=== PATIENT | male | born 1965 | race Caucasian/White ===

== ENCOUNTER 2019-01-01 06:56 | Day surgery (SDC) | payer OTHER ==
[~2019-01-01 06:56] MED LIST: ACETAMINOPHEN 1,000 MG/100 ML BTL IVPB ONE
[2019-01-01] MEDS ORDERED: FENTANYL PF 100MCG/2ML VIAL IV ONE (06:57)
[2019-01-01] MEDS ORDERED: LIDOCAINE 2% MDV (20MG/ML) 20ML VIAL IV ONE (06:57)
[2019-01-01] MEDS ORDERED: DEXAMETHASONE 4 MG/ML 1ML VIAL IVP ONE (06:57)
[2019-01-01] MEDS ORDERED: MIDAZOLAM HCL 2MG/2ML VIAL IV ONE (06:57)
[2019-01-01] MEDS ORDERED: ONDANSETRON HCL IV 4 MG/2 ML VIAL IVP ONE (06:57)
[2019-01-01] MEDS ORDERED: KETOROLAC 30 MG/ML VIAL IVP ONE (06:57)
[2019-01-01] MEDS ORDERED: DESFLURANE 240 ML BTL INH ONE (06:57)
[2019-01-01] MEDS ORDERED: PROPOFOL 10 MG/ML VIAL IV ONE (06:57)
[2019-01-01] MEDS ORDERED: RINGERS SOLUTION,LACTATED 1,000 ML IV ONE (07:40)
[2019-01-01] MEDS ORDERED: OXYCODONE HCL/APAP 5MG/325MG TABLET PO ONE (10:48)
--- NOTE | 2019-01-01 12:54 | Operative Note ---
DATE OF SURGERY: 01/01/2019 SURGEON: Joe Ye D.O. REFERRING PHYSICIAN: Leif Schuster D.O. PREOPERATIVE DIAGNOSIS: CARPAL TUNNEL SYNDROME IN THE LEFT WRIST. POSTOPERATIVE DIAGNOSIS: CARPAL TUNNEL SYNDROME IN THE LEFT WRIST. OPERATION: DECOMPRESSION OF THE LEFT MEDIAN NERVE OF THE WRIST USING 3.5 LOOP MAGNIFICATION. DESCRIPTION: This is 53-year-old male was taken to the Operating Room and placed in the supine position on the operating room table. General anesthesia was induced, the left upper extremity was elevated, it was prepped with Hibiclens and draped in the usual sterile fashion. It was exsanguinated and the tourniquet was inflated to 250 mmHg. A palmar incision was utilized following the hypothenar crease from the level of the base of the web space of the thumb to the flexor crease of the wrist. Dissection was carried down through the skin and subcutaneous tissues. Hemostasis was obtained with electrocautery. The palmar fascia was divided in line with the skin incision. The flexor retinaculum was identified, it was punctured, split to its proximal margin and then when the contents of the carpal tunnel are under direct vision the transverse carpal ligament was transected along its ulnar border and the radial flap was raised to expose the entire median nerve under the transverse carpal ligament. The recurrent motor branch of the median nerve was in an abnormal position being on the radial aspect of the nerve, but it was found to be intact. The median nerve itself appeared to be grossly normal other than the unusual position of the recurrent motor branch. The wound was irrigated with lactated Ringer's solution and the tourniquet released. Hemostasis was obtained with the electrocautery and the wound closed with interrupted 6-0 nylon suture. Sterile dressings were applied and the patient was subsequently taken to the Recovery Room in satisfactory condition. GROSS PATHOLOGY: This patient demonstrated normal appearance of the median nerve. There was an unusual position of the recurrent motor branch on the radial aspect of the median nerve. JOB NUMBER: [id number] MTDD
== END 2019-01-01 11:00 | disposition home or self-care (01) ==
LOC: SUR 06:56
PROVIDERS: ATTEND Orthopaedic Surgery
DX: G56.02 Carpal tunnel syndrome, left upper limb (principal)
CPT/HCPCS: J1885; J2405; J7120

== ENCOUNTER 2019-02-05 09:10 | Day surgery (SDC) | payer OTHER ==
[2019-02-05] MEDS ORDERED: KETOROLAC 30 MG/ML VIAL IVP ONE (09:11)
[2019-02-05] MEDS ORDERED: MIDAZOLAM HCL 2MG/2ML VIAL IV ONE (09:11)
[2019-02-05] MEDS ORDERED: ONDANSETRON HCL IV 4 MG/2 ML VIAL IVP ONE (09:11)
[2019-02-05] MEDS ORDERED: FENTANYL PF 100MCG/2ML VIAL IV ONE (09:11)
[2019-02-05] MEDS ORDERED: LIDOCAINE 2% MDV (20MG/ML) 20ML VIAL IV ONE (09:11)
[2019-02-05] MEDS ORDERED: PROPOFOL 10 MG/ML VIAL IV ONE (09:11)
[2019-02-05] MEDS ORDERED: SEVOFLURANE 250 ML INH ONE (09:11)
[2019-02-05] MEDS ORDERED: RINGERS SOLUTION,LACTATED 1,000 ML IV ONE (09:40)
--- NOTE | 2019-02-10 15:41 | Operative Note ---
DATE OF SURGERY: 02/05/2019 PREOPERATIVE DIAGNOSIS: Carpal tunnel syndrome of the right wrist. POSTOPERATIVE DIAGNOSIS: Carpal tunnel syndrome of the right wrist. OPERATION: Decompression right median nerve of the wrist using 3.5 loupe magnification. SURGEON: Joe Ye D.O. REFERRING PHYSICIAN: Leif Calhoun. PROCEDURE: This 53-year-old male was taken to the operating room and placed in the supine position on the operating room table. General anesthetic was administered and the right upper extremity was elevated, prepped with Hibiclens and draped in the usual sterile fashion. The right upper extremity was exsanguinated and the tourniquet inflated to 250 mmHg. A palmar incision was utilized following the hypothenar crease from the level of the base of the web space of the thumb to the flexor crease of the wrist. Dissection was carried down through the skin and subcutaneous tissue. The palmar fascia was divided in line with the skin incision to expose the flexor retinaculum and the transverse carpal ligament. The flexor retinaculum was punctured and split to its proximal margin and with the contents of the carpal tunnel under direct vision, the transverse carpal ligament was transected along its ulnar border. The radial flap was raised to expose the entire median nerve under the transverse carpal ligament and the median nerve itself appeared to be normal. There was no abnormality of the recurrent motor branch of the median nerve. The wound was irrigated with lactated Ringer's solution, the tourniquet was released. Hemostasis obtained with the electrocautery. The wound was closed with interrupted 6-0 nylon suture to the skin. Sterile dressings were applied with a plaster splint immobilization with the wrist in slight dorsiflexion and the thumb in an adducted position. [facility]
== END 2019-02-05 12:40 | disposition home or self-care (01) ==
LOC: SUR 09:10
PROVIDERS: ATTEND Orthopaedic Surgery
DX: G56.01 Carpal tunnel syndrome, right upper limb (principal); Z85.820 Personal history of malignant melanoma of skin
CPT/HCPCS: 64721; 64727; 01810; J1885; J2405; J3010; J7120